=== PATIENT | female | born 1990 | race Caucasian/White ===

== ENCOUNTER 2016-12-09 15:43 | Emergency (ER) | payer OTHER ==
--- NOTE | ~2016-12-09 | CR72 ---
[facility] A Service of [facility] & [facility] RADIOLOGY TEXT RESULTS PATIENT: MARVEL SOLITARIO LOCATION: [facility] : [birth year] UNIT #: [id number] AGE: [address]: Gene Lozano MD SEX: F ORDER DR: [id number] [facility] [address] [place], [place] [address] [id number] E MR#: [id number] Acc #: [id number] NAME: MARVEL SOLITARIO : 1990 SEX: F STUDY DATE/TIME: 12/09/2016 15:15 UNIT: [facility] ROOM: STUDY DESCRIPTION: CR Chest Single View Portable Attending Physician: Gene Lozano M.D. Ordering Physician: Ed Keo August M.D. Primary Care Physician: [facility] MEDICAL IMAGING REPORT This report is preliminary unless electronic signature is present EXAM AP portable chest, 12/09/2016 COMPARISON 12/07/2015 HISTORY SUPPLIED Heroin overdose, shortness of breath today. FINDINGS An AP view is obtained at low volumes. The heart size appears normal and the lungs are clear. CONCLUSION Low volume chest, negative. Dictated by... Keanu Vaca M.D. THIS IS AN ELECTRONICALLY VERIFIED REPORT Keanu Vaca M.D. at 12/10/2016 8:01 AM AMBER/aislinn TD: 12/09/2016 21:24 JOB #: [id number] MEDICAL IMAGING REPORT COPY
[~2016-12-09 15:43] MED LIST: ATARAX PO; AUGMENTIN875 MG PO; BACTROBAN22 GM TOP; CIPRO PO; CIPRODEX OTIC7.5 ML OT; DAKIN'S MODIF1000 ML TOP; FLAGYL PO; HYDROCODON-ACE1 EAC7 PO; IBUPROFEN800 MG PO; MACROBID100 MG PO; NO MEDICATIONS; ORTHO TRI-7 DAYS X PO; PREDNISONE10 MG/DOSE PO; PYRIDIUM100 MG PO; TRIAMCINOLONE A15 G3 EXT
== END 2016-12-09 17:27 | disposition home or self-care (01) ==
LOC: CED 15:43
DX: T40.1X1A Poisoning by heroin, accidental (unintentional), initial encounter (principal); K74.60 Unspecified cirrhosis of liver; F17.210 Nicotine dependence, cigarettes, uncomplicated; Z98.890 Other specified postprocedural states; Z88.1 Allergy status to other antibiotic agents
CPT/HCPCS: 71010; 99282; 99283

== ENCOUNTER 2016-12-10 15:53 | Emergency (ER) | payer OTHER ==
--- NOTE | ~2016-12-10 | EKG ---
PATIENT: MARVEL SOLITARIO UNIT #: [id number] Ventricular Rate: 87 BPM Atrial Rate: 87 BPM P-R Interval: 104 ms QRS Duration: 92 ms Q-T Interval: 362 ms QTC Calculation(Bezet): 435 ms P Terril: 36 degrees Calculated R Terril: 85 degrees Calculated T Terril: 48 degrees Diagnosis Line: Sinus rhythm with short AR Diagnosis Line: Otherwise normal ECG Diagnosis Line: When compared with ECG of 07-DEC-2015 22:59, Diagnosis Line: (unconfirmed) Diagnosis Line: No significant change was found Diagnosis Line: Confirmed by TWIN PERRY MD ([id number]) on Diagnosis Line: 12/11/2016 11:24:35 AM INTERPRETING MD: VICKY DIAZ
[2016-12-10 15:37] LABS: BASOPHIL% 0.5 % (0-2.5); EOSINOPHIL# 0.2 X10e3 (0-0.7); EOSINOPHIL% 3.4 % (0.0-7.0); HEMOGLOBIN 14.1 gm/dL (12.0-16.0); LYMPHOCYTE# 2.4 X10e3 (1.0-3.5); LYMPHOCYTE% 33.5 % (17.0-45.0); MEAN CELL VOLUME 82.5 FL (83-96); MEAN CORPUSCULAR HEMOGLOBIN 27.8 PG (28-34); MEAN CORPUSCULAR HGB CONC 33.7 g/dL (30-36); MEAN PLATELET VOLUME 7.7 FL (6.5-11.5); MONOCYTE# 0.6 X10e3 (0-1.0); NEUTROPHIL# 3.8 X10e3 (1.5-7.1); NEUTROPHIL% 54.6 % (40-75); PLATELET COUNT 184 X10e3 (140-420); RED BLOOD COUNT 5.09 X10e (3.90-5.30); RED CELL DISTRIBUTION WIDTH 13.5 % (11.0-15.5)
[2016-12-10 15:38] LABS: DIFF IND NO
[2016-12-10 15:52] LABS: ALBUMIN SERUM 4.4 g/dL (3.5-5.0); ALKALINE PHOSPHATASE 54 U/L (32-92); ALT (SGPT) 71 U/L (10-40); AST (SGOT) 48 U/L (10-42); BILIRUBIN, DIRECT 0.1 mg/dL (0.0-0.2); BILIRUBIN,INDIRECT 0.6 mg/dL (0.0-0.9); BILIRUBIN,TOTAL 0.7 mg/dL (0.2-2.0); BLOOD UREA NITROGEN 9 mg/dL (9-23); BUN/CREATININE RATIO 11.25; CALCIUM SERUM 9.1 mg/dL (8.4-10.2); CARBON DIOXIDE 25 mmol/L (22-31); CHLORIDE 102 mmol/L (100-111); CREATININE SERUM 0.8 mg/dL (0.6-1.4); GLOM FILT RATE Estimated ABOVE60 mL/min (>60); GLUCOSE FASTING 83 mg/dL (70-110); POTASSIUM 3.2 mmol/L (3.5-5.1); PROTEIN TOTAL SERUM 7.7 g/dL (6.0-8.3); SODIUM 136 mmol/L (135-145)
[2016-12-10 15:53] LABS: ALCOHOL BLOOD <5 mg/dL (0)
[2016-12-10 15:54] LABS: URINE SOURCE CLEAN CATCH
[2016-12-10 15:59] LABS: URINE APPEARANCE CLEAR; URINE BLOOD NEG (NEG); URINE COLOR YELLOW; URINE GLUCOSE NORM (NORM); URINE KETONE NEG (NEG); URINE LEUKOCYTE ESTERASE NEG (NEG); URINE NITRATE NEG (NEG); URINE PROTEIN 1+ (NEG); URINE SPECIFIC GRAVITY 1.025 (1.003-1.035); URINE UROBILINOGEN NORM (NORM)
[2016-12-10 16:05] LABS: AMPHETAMINE POS (NEG); BARBITURATES NEG (NEG); BENZODIAZEPINES POS (NEG); COCAINE NEG (NEG); MARIJUANA POS (NEG); OPIATES POS (NEG); TRICYCLIC ANTIDEPRESSANTS NEG (NEG); U METHADONE NEG (NEG)
[2016-12-10 16:12] LABS: URINE BILIRUBIN NEG (NEG)
[2016-12-10 16:16] LABS: CULTURE INDICATED? NO; URBCS1 AUWI 0-2 /[HPF] (0-2); UWBCS1 AUWI 0-2 (0-5)
[2016-12-10 16:17] LABS: U HYALINE CASTS AUWI 0-2 /[LPF]; URINE CRYSTALS CALCIUM OXALATE /[HPF]; URINE GRANULAR CAST 0-2 /[HPF]; URINE MUCUS PRESENT; URINE SPERM PRESENT; URINE SQUAMOUS EPITHELIAL CELL FEW /[HPF]; URINE TRANSITIONAL EPI CELLS FEW /[HPF]
== END 2016-12-10 19:23 | disposition home or self-care (01) ==
LOC: CED 15:53
PROVIDERS: Emergency Medicine
DX: F11.129 Opioid abuse with intoxication, unspecified (principal); F15.129 Other stimulant abuse with intoxication, unspecified; F19.129 Other psychoactive substance abuse with intoxication, unspecified; F17.200 Nicotine dependence, unspecified, uncomplicated; Z88.1 Allergy status to other antibiotic agents
CPT/HCPCS: 36415; 80048; 80076; 80307; 81003; 82947; 84703; 85025; 93005; 96361; 96374; 99285; G0480; J2310

== ENCOUNTER 2017-01-18 14:36 | Inpatient (IN) | payer OTHER ==
--- NOTE | ~2017-01-18 | HP ---
Unit #: [id number] #: [id number] Patient: MARVEL SOLITARIO [id number] [address] [place], [place] [address] [id number] I MR#: [id number] NAME: MARVEL SOLITARIO ROOM: 217 Age: 26 Sex: F Admission Date: 01/18/2017 : 1990 Attending Physician: Nicola Ugalde M.D. HISTORY AND PHYSICAL REASON FOR ADMISSION Right antecubital fossa abscess. HISTORY OF PRESENT ILLNESS This is a 26-year-old patient, very pleasant, who states that she used IV heroin for many years. She quit several months ago and states that she had a relapse over the past several weeks to where she began using on a daily basis. She began noticing swelling which was present over her right arm, as well as the right antecubital fossa area became painful. She stated that she has had similar issues in the past. I did go through her chart review, and I do see a previous admission in April 2013 for the same. PAST MEDICAL HISTORY 1. IV drug abuse daily. 2. Prior history of antecubital fossa abscess. 3. Cirrhosis written in the chart; however, patient denies. PAST SURGICAL HISTORY Incision and drainage. HOME MEDICATIONS None. ALLERGIES No known drug allergies. FAMILY HISTORY Reviewed and noncontributory or non-pertinent. SOCIAL HISTORY Positive tobacco use, positive social alcohol use, positive illicit drug use with ongoing IV heroin use. REVIEW OF SYSTEMS Please see History of Present Illness. Twelve points otherwise negative except for those positive and noted in the History of Present Illness. PHYSICAL EXAMINATION VITAL SIGNS: Temperature 98.5, pulse 104, respirations 16, and blood pressure 125/74. GENERAL APPEARANCE: A pleasant, 26-year-old female lying comfortably in no acute distress. HEAD: Atraumatic and normocephalic. Unit #: [id number] #: [id number] Patient: MARVEL SOLITARIO EARS: Tympanic membranes do not reveal any erythema or injection. NECK: Supple. CARDIOVASCULAR: S1 and S2 without murmur. RESPIRATORY: Clear. GASTROINTESTINAL/ABDOMEN: Nontender and nondistended. LOWER EXTREMITIES: No evidence of any lower extremity edema or calf tenderness. Right upper extremity reveals fluctuant abscess formation in the antecubital fossa area. Tenderness and warmth, as well as associated erythema are noted around the right elbow, as well as the AC area. DIAGNOSTIC STUDIES INITIAL LABORATORY: CBC shows hemoglobin level of 12.3 and white count of 9.7. BMP shows potassium of 3.2. Urine toxicology screen is positive for amphetamines and marijuana, as well as opiates. INITIAL ADMISSION DIAGNOSES 1. Right antecubital fossa abscess. 2. Ongoing IV heroin use. 3. Questionable prior history of cirrhosis. 4. Noncompliant/poor insight into overall disease process. PLAN Admission to med/surg floor. [facility] consultation for evaluation. Vancomycin and Zosyn overnight. Obtain blood cultures. Further hospital course to follow. Dictated by Bethany Burt/benny TD: 01/19/2017 20:20 JOB #: [id number] HISTORY AND PHYSICAL Page 1 of 1 X Nicola Ugalde MD X HISTORY AND PHYSICAL
--- NOTE | ~2017-01-18 | OR ---
Unit #: [id number] #: [id number] Patient: MARVEL SOLITARIO [id number] [address] [address] [id number] I MR#: [id number] NAME: MARVEL SOLITARIO ROOM: 217 Date of Procedure: 01/19/2017 Admission Date: 01/18/2017 Surgeon: Dev Brush M.D. : 1990 Attending Physician: Nicola Ugalde M.D. Referring Physician: Primary Care Physician No Primary Care Physician: Primary Care Physician No OPERATIVE REPORT PREOPERATIVE DIAGNOSIS Right antecubital abscess. POSTOPERATIVE DIAGNOSIS Right antecubital abscess. PROCEDURE PERFORMED Incision and drainage of right antecubital abscess. ANESTHESIA General endotracheal. COMPLICATIONS None. ESTIMATED BLOOD LOSS Minimal. DESCRIPTION OF PROCEDURE After the patient was prepped and draped in the usual fashion, right antecubital space was examined just proximal to the elbow crease on the ventral side. There was an area of fluctuance. There was surrounding induration and erythema circumferentially about 6 to 7 cm. The fluctuant area was incised. An incision was made about a centimeter and half long. Pus was expressed. This was sent for culture. The cavity was irrigated and suctioned free. There was no significant necrosis. There was decent granulation tissue within the cavity itself. The cavity was packed with 0.25-inch iodoform gauze. Dressing was applied. The patient was taken to the recovery room in good condition. Dictated by... Bethany Ortiz/devendra TD: 01/20/2017 00:15 JOB #: [id number] Unit #: [id number] #: [id number] Patient: MARVEL SOLITARIO OPERATIVE REPORT Page 1 of 1 X Dev Brush PROCEDURE OPERATIVE NOTE
--- NOTE | ~2017-01-18 | DS ---
Unit #: [id number] #: [id number] Patient: MARVEL SOLITARIO [id number] [address] [place], [place] [address] [id number] I MR#: [id number] NAME: MARVEL SOLITARIO ROOM: 217 Age: 26 Sex: F Admission Date: 01/18/2017 : 1990 Discharge Date: 01/21/2017 Attending Physician: Nicola Ugalde M.D. DISCHARGE SUMMARY DISCHARGE DIAGNOSES 1. Right antecubital fossa abscess, status post incision and drainage by General Surgery. 2. Methicillin-resistant Staphylococcus aureus wound sensitive to tetracycline. Was discharged on doxycycline. 3. Right shoulder pain. 4. Intravenous heroin use. PROCEDURE Incision and drainage of right antecubital abscess by Dr. Dev Brush on January 19, 2017. TECHNICAL IMPLEMENTATION LEAD [facility]. DIAGNOSTIC STUDIES LABORATORY: Patient's last labs were on January 19. BMP with glucose of 109, BUN 8, creatinine 0.7, sodium 134, potassium 4.7, chloride 104, CO2 of 22, and calcium 8.9. CBC with WBC of 11.2, RBC 4.38, hemoglobin 12.1, hematocrit 36.4, MCV 83, MCH 27.6, MCHC 33.2, RDW 13.1, platelets 265,000, and MPV 7.15. Microbiology: Patient's blood culture had no growth. She had two samples of the wound from her arm during operative incision and drainage. One of the cultures has MRSA sensitive to tetracycline. IMAGING: No imaging done during this hospitalization. HOSPITAL COURSE The patient is a 26-year-old female with a past medical history of IV heroin use for many years who presented to the emergency department due to swelling in her right arm, as well as the right antecubital fossa. It had become severely painful and therefore was seen in the emergency department for further evaluation. She was admitted. A urine drug screen was positive for amphetamine, marijuana, and opioids. She was seen in consultation with [facility] who performed an incision and drainage of the right antecubital fossa abscess. She had transiently been on antibiotics with Zosyn and vancomycin. Blood culture had no growth. Wound culture did have MRSA which is sensitive to tetracycline. A prescription for doxycycline was prescribed with surgeon's recommendation. Patient told me that she had pain in her right shoulder. I had ordered an MRI of the shoulder to be done, but she became very angry that it took so long for this procedure to be complete. She was seen throwing francesco at Unit #: [id number] #: [id number] Patient: MARVEL SOLITARIO the nurses. Therefore, if she had full range of motion in that shoulder and blood culture had been negative, we thought that it was best that she be discharged home. She does have orders to follow up with her primary care physician within one to two weeks. She is to have dressing changes done twice daily, and she is to follow up with the wound clinic at [facility] in one week where Dr. Streeter will be following her. At this time, patient is discharged in stable condition to home. DISCHARGE INSTRUCTIONS 1. Followup: As stated above, follow up with primary care physician within one to two weeks and follow up at [facility] in one week followed by Dr. Stereter. 2. Dressing changes at home twice daily. 3. Activity: Nonrestricted. 4. Diet: Nonrestricted. DISCHARGE MEDICATIONS 1. Hydrocodone and acetaminophen 5/325 at 1 tablet every 6 hours as needed for moderate to severe pain. Prescription for 30 was given. 2. Doxycycline 100 mg orally twice daily for 7 days. PROGNOSIS Patient's prognosis is poor given her poor insight into her actual ongoing medical problems. Dictated by... Rocky Borges PA-C for Bethany Burt TD: 01/21/2017 21:55 JOB #: [id number] DISCHARGE SUMMARY Page 1 of 1 X X DISCHARGE SUMMARY
[2017-01-18 14:53] LABS: BASOPHIL# 0.1 X10e3 (0-0.3); BASOPHIL% 0.7 % (0-2.5); EOSINOPHIL# 0.2 X10e3 (0-0.7); EOSINOPHIL% 2.2 % (0.0-7.0); HEMATOCRIT 36.3 % (35.0-45.0); HEMOGLOBIN 12.3 gm/dL (12.0-16.0); LYMPHOCYTE# 1.6 X10e3 (1.0-3.5); LYMPHOCYTE% 16.6 % (17.0-45.0); MEAN CELL VOLUME 81.7 FL (83-96); MEAN CORPUSCULAR HEMOGLOBIN 27.7 PG (28-34); MEAN CORPUSCULAR HGB CONC 33.8 g/dL (30-36); MEAN PLATELET VOLUME 7.3 FL (6.5-11.5); MONOCYTE# 0.5 X10e3 (0-1.0); MONOCYTE% 5.3 % (3.0-12.0); NEUTROPHIL# 7.3 X10e3 (1.5-7.1); NEUTROPHIL% 75.2 % (40-75); PLATELET COUNT 254 X10e3 (140-420); RED BLOOD COUNT 4.44 X10e (3.90-5.30); WHITE BLOOD COUNT 9.7 X10e3 (4.0-10.5)
[2017-01-18 15:04] LABS: DIFF IND NO
[2017-01-18 15:33] LABS: BUN/CREATININE RATIO 22.5; CALCIUM SERUM 8.7 mg/dL (8.4-10.2); CREATININE SERUM 0.4 mg/dL (0.6-1.4); GLOM FILT RATE Estimated 144.8 mL/min (>60); POTASSIUM 3.2 mmol/L (3.5-5.1)
[2017-01-18 16:54] LABS: AMPHETAMINE POS (NEG); BARBITURATES NEG (NEG); BENZODIAZEPINES NEG (NEG); COCAINE NEG (NEG); MARIJUANA POS (NEG); OPIATES POS (NEG); TRICYCLIC ANTIDEPRESSANTS NEG (NEG); U METHADONE NEG (NEG)
[2017-01-19] MEDS ORDERED: NO MEDICATIONS (06:11)
[2017-01-19 11:34] LABS: BASOPHIL# 0.1 X10e3 (0-0.3); BASOPHIL% 0.7 % (0-2.5); EOSINOPHIL# 0.1 X10e3 (0-0.7); EOSINOPHIL% 0.7 % (0.0-7.0); HEMATOCRIT 36.4 % (35.0-45.0); HEMOGLOBIN 12.1 gm/dL (12.0-16.0); LYMPHOCYTE# 1.7 X10e3 (1.0-3.5); LYMPHOCYTE% 15.3 % (17.0-45.0); MEAN CORPUSCULAR HEMOGLOBIN 27.6 PG (28-34); MEAN CORPUSCULAR HGB CONC 33.2 g/dL (30-36); MEAN PLATELET VOLUME 7.5 FL (6.5-11.5); MONOCYTE# 0.3 X10e3 (0-1.0); MONOCYTE% 2.8 % (3.0-12.0); NEUTROPHIL% 80.5 % (40-75); PLATELET COUNT 265 X10e3 (140-420); RED BLOOD COUNT 4.38 X10e (3.90-5.30); RED CELL DISTRIBUTION WIDTH 13.1 % (11.0-15.5); WHITE BLOOD COUNT 11.2 X10e3 (4.0-10.5)
[2017-01-19 11:35] LABS: DIFF IND NO
[2017-01-19 12:08] LABS: BUN/CREATININE RATIO 11.42; CALCIUM SERUM 8.9 mg/dL (8.4-10.2); CREATININE SERUM 0.7 mg/dL (0.6-1.4); GLOM FILT RATE Estimated 120.4 mL/min (>60)
[2017-01-19 12:09] LABS: POTASSIUM 4.7 mmol/L (3.5-5.1)
[2017-01-21] MEDS ORDERED: LORTAB 5-325 M1 EACH PO (14:09)
[2017-01-21] MEDS ORDERED: DOXYCYCLINE HY100 M3 PO (14:09)
== END 2017-01-21 16:16 | disposition home or self-care (01) | DRG 603 ==
LOC: CED 14:36 → CEDOF 18:05 → C2A 01-19 05:58
PROVIDERS: Emergency Medicine; Surgery
PROC: 0X980ZZ Drainage of Right Upper Arm, Open Approach (ICD-10-PCS; principal; 2017-01-19 07:30)
DX: L02.413 Cutaneous abscess of right upper limb (principal); F11.10 Opioid abuse, uncomplicated; M25.511 Pain in right shoulder; B95.62 Methicillin resistant Staphylococcus aureus infection as the cause of diseases classified elsewhere; Z91.19 Patient's noncompliance with other medical treatment and regimen
CPT/HCPCS: 36415; 80048; 80307; 84703; 85025; 87040; 87070; 87075; 87077; 87186; 87205; 96365; 99285; J1100; J1170; J1885; J2060; J2250; J2270; J2543; J2765; J3370

== ENCOUNTER 2017-03-02 18:24 | Emergency (ER) | payer OTHER ==
--- NOTE | ~2017-03-02 | CR127 ---
[facility] A Service of [facility] & [facility] RADIOLOGY TEXT RESULTS PATIENT: MARVEL SOLITARIO LOCATION: [facility] : [birth year] UNIT #: [id number] AGE: [address]: RALPH FAULKNER SEX: F ORDER DR: [id number] [place] [address] [id number] E MR#: [id number] Acc #: [id number] NAME: MARVEL SOLITARIO : 1990 SEX: F STUDY DATE/TIME: 03/02/2017 UNIT: SED ROOM: STUDY DESCRIPTION: CR Foot Complete Min 3 View Rt Attending Physician: Ralph Faulkner Ordering Physician: Ralph Faulkner Primary Care Physician: Primary Care Physician No MEDICAL IMAGING REPORT This report is preliminary unless electronic signature is present. EXAM Right foot 3 views 03/02/2017 19:14 hours HISTORY 26-year-old woman complaining of redness, swelling of the anterior foot for 3 days. History of drug use. COMPARISON None FINDINGS AP, lateral and oblique views demonstrate dorsal soft tissue swelling with no fracture, dislocation, foreign body or soft tissue gas. IMPRESSION Dorsal soft tissue swelling diffusely. No fracture, dislocation, foreign body or soft tissue gas is seen. Dictated by... Sherrell Choudhury M.D. THIS IS AN ELECTRONICALLY VERIFIED REPORT Sherrell Choudhury M.D. at 03/03/2017 8:46 AM M/pablito TD: 03/03/2017 07:04 JOB #: [id number] MEDICAL IMAGING REPORT Page 1 of 1
[~2017-03-02 18:24] MED LIST changes: +DOXYCYCLINE HY100 M3 PO; +LORTAB 5-325 M1 EACH PO
[2017-03-02 19:14] LABS: BASOPHIL% 0.5 % (0-2.5); EOSINOPHIL# 0.1 X10e3 (0-0.7); EOSINOPHIL% 1.6 % (0.0-7.0); HEMATOCRIT 38.6 % (35.0-45.0); HEMOGLOBIN 13.2 gm/dL (12.0-16.0); LYMPHOCYTE# 1.7 X10e3 (1.0-3.5); MEAN CELL VOLUME 80.8 FL (83-96); MEAN CORPUSCULAR HEMOGLOBIN 27.5 PG (28-34); MEAN PLATELET VOLUME 7.7 FL (6.5-11.5); MONOCYTE# 0.5 X10e3 (0-1.0); MONOCYTE% 5.6 % (3.0-12.0); NEUTROPHIL% 74.3 % (40-75); PLATELET COUNT 259 X10e3 (140-420); RED BLOOD COUNT 4.78 X10e (3.90-5.30); RED CELL DISTRIBUTION WIDTH 13.1 % (11.0-15.5); WHITE BLOOD COUNT 9.5 X10e3 (4.0-10.5)
[2017-03-02 19:16] LABS: DIFF IND NO
[2017-03-02 19:27] LABS: BUN/CREATININE RATIO 12.85; CALCIUM SERUM 8.9 mg/dL (8.4-10.2); CREATININE SERUM 0.7 mg/dL (0.6-1.4); GLOM FILT RATE Estimated 120.4 mL/min (>60)
== END 2017-03-02 20:26 | disposition home or self-care (01) ==
LOC: SED 18:24
PROVIDERS: Physician Assistant
DX: L03.115 Cellulitis of right lower limb (principal); F17.200 Nicotine dependence, unspecified, uncomplicated; K75.9 Inflammatory liver disease, unspecified; F11.20 Opioid dependence, uncomplicated
CPT/HCPCS: 36415; 73630; 80048; 84703; 85025; 96365; 99284; J0696

== ENCOUNTER 2017-03-07 07:33 | Inpatient (IN) | payer OTHER ==
--- NOTE | ~2017-03-07 | OR ---
Unit #: [id number] #: [id number] Patient: MARVEL SOLITARIO [id number] [address] [place], [place] [address] [id number] I MR#: [id number] NAME: MARVEL SOLITARIO ROOM: [facility] Date of Procedure: 03/10/2017 Admission Date: 03/07/2017 Surgeon: Sandra Tavares M.D. : 1990 Attending Physician: Nicola Ugalde M.D. OPERATIVE REPORT PREOPERATIVE DIAGNOSIS Right dorsal foot abscess. POSTOPERATIVE DIAGNOSIS Right dorsal foot abscess. PROCEDURE PERFORMED Right foot dorsal abscess incision and drainage (). ASSISTANTS MD Prema and LULU Noble. ANESTHESIA General. INDICATIONS FOR SURGERY The patient is a 26-year-old female with a right dorsal foot abscess from injecting IV heroin. She has had persistent worsening pain and swelling on the dorsal foot. She now has a fluctuant mass in the dorsal aspect of the foot. DESCRIPTION OF PROCEDURE The patient was taken to the operating room and placed in supine position and general anesthetic was induced. The right foot was identified as the correct operative location during the time-out procedure. The IV antibiotic protocol was followed. The right foot was then prepped and draped in the usual sterile fashion. The leg was exsanguinated with gravity and the tourniquet was inflated to 250 mmHg. A dorsal longitudinal incision was made over the dorsal midfoot fluctuant mass measuring 4 cm. Pus was immediately obtained. This was cultured for aerobic and anaerobic bacteria. All loculations were released. All tissue was resected. The wound was then irrigated with 1 L of normal saline. The wound was then packed open with Betadine-soaked 1-inch roll gauze. Dressing, sponges, Kerlix, and an Rm wrap were then applied. The patient was placed in a postoperative shoe. She was then awakened in the operating room and transported to the recovery room in stable condition. ESTIMATED BLOOD LOSS Minimal. COMPLICATIONS None. Unit #: [id number] #: [id number] Patient: MARVEL SOLITARIO SPECIMENS Cultures. TOURNIQUET TIME 10 minutes. Dictated by.Trista Tavares M.D. RTH/modl TD: 03/11/2017 04:43 JOB #: [id number] OPERATIVE REPORT Page 1 of 1 X Mabel Tavares MD PROCEDURE OPERATIVE NOTE
--- NOTE | ~2017-03-07 | MR59 ---
[facility] A Service of [facility] & [facility] RADIOLOGY TEXT RESULTS PATIENT: MARVEL SOLITARIO LOCATION: [facility] : [birth year] UNIT #: [id number] AGE: [address]: Nicola Ugalde MD SEX: F ORDER DR: [id number] [place] [id number] [facility]. [place], [place] [address] [id number] I MR#: [id number] Acc #: [id number] NAME: MARVEL SOLITARIO : 1990 SEX: F STUDY DATE/TIME: 03/10/2017 19:41 UNIT: [facility] ROOM: [facility] STUDY DESCRIPTION: MR Foot WWo Contrast Rt Attending Physician: Nicola Ugalde M.D. Ordering Physician: Sandar Tavares M.D. Primary Care Physician: No Primary Care Physician MRI CENTER REPORT This report is preliminary unless electronic signature is present. EXAM MRI of the right foot with and without contrast HISTORY 26-year-old female; right foot pain, dorsal foot abscess. Swelling and pain beginning February 28; infection at injection site. Patient IV drug user. Recent foot debridement today. The history states injected heroin into right foot. COMPARISON Right foot films 03/02/2017 TECHNIQUE Multiplanar multiecho imaging was performed of the right mid and forefoot to include axial T1-weighted images following IV gadolinium. FINDINGS Examination demonstrates a large wound over the dorsolateral aspect of the foot overlying the proximal aspects of the fourth and fifth metatarsals. There is surgical packing within the wound. The wound measures about 2 x 2 cm in transverse dimensions and about 4.4 cm in AP dimension. There is diffuse soft tissue swelling over the dorsum of foot which enhances postcontrast compatible with active cellulitis. No evidence of residual abscess or fluid collection. No definite deep compartment involvement. No findings to suggest septic arthritis or osteomyelitis. IMPRESSION 1. Large wound over the dorsolateral aspect of the foot containing surgical packing, as detailed above. 2. Extensive soft tissue swelling and edema over the dorsum of the foot with enhancement postcontrast, compatible with active cellulitis. 3. No evidence of residual abscess, deep compartment infection, septic arthritis, or osteomyelitis. ST[facility] A Service of [facility] & [facility] RADIOLOGY TEXT RESULTS PATIENT: MARVEL SOLITARIO LOCATION: [place] [address] : [birth year] UNIT #: [id number] AGE: [address]: Nicola Ugalde MD SEX: F ORDER DR: Dictated by... Tarik Watson M.D. THIS IS AN ELECTRONICALLY VERIFIED REPORT Tarik Watson M.D. at 03/11/2017 5:03 PM Von TD: 03/11/2017 11:06 JOB #: [id number] MRI CENTER REPORT Page 1 of 1 COPY
--- NOTE | ~2017-03-07 | HP ---
Unit #: [id number] #: [id number] Patient: MARVEL SOLITARIO [id number] [address] [address] [id number] I MR#: [id number] NAME: MARVEL SOLITARIO ROOM: 318 Age: 26 Sex: F Admission Date: 03/07/2017 : 1990 Attending Physician: Mery Sainz M.D. Primary Care Physician: No Primary Care Physician HISTORY AND PHYSICAL CHIEF COMPLAINT Right foot pain. HISTORY OF PRESENT ILLNESS The patient is a 26-year-old female with a past medical history of IV drug use, MRSA, who presented to the emergency department for evaluation of the above at [facility]. The patient states that she injected drugs into her right foot on February 28, 2017. She noticed that it was sore a few hours later. The next day, it was swollen, red and painful. She was seen at [facility] on March 02, 2017. A right foot x-ray was done and showed soft tissue swelling diffusely. She was given clindamycin and discharged home. She states that she has been taking the clindamycin as prescribed but the symptoms have persisted. She presented to [facility] for evaluation again. In the emergency department, initial temperature and pulse were 98.1 and 118 respectively. She was given 1 L of normal saline as well as 1 g of Rocephin. She was transferred to [facility] for admission. Of note, the patient's urine tox screen was positive for amphetamine and opiates. Urine beta hCG was negative. PAST MEDICAL HISTORY Admission to [facility] January 18 though the 2016, for right antecubital fossa abscess. She underwent incision and drainage during that admission. Wound culture from January 19, 2017, grew 1+ MRSA. SURGICAL HISTORY Incision and drainage. SOCIAL HISTORY The patient is currently living with her brother. She is an IV drug user. She reports IV heroin and methamphetamine use. She smokes a half pack of cigarettes daily. She denies alcohol use. FAMILY HISTORY Notable for her mother having rheumatoid arthritis. Her father is . He had lymphoma. ALLERGIES No known allergies. Unit #: [id number] #: [id number] Patient: MARVEL SOLITARIO HOME MEDICATIONS Clindamycin. REVIEW OF SYSTEMS A complete review of systems is negative except as indicated in the HPI. The patient states that she is interested in rehab. She states that she has a bed at [facility] on Friday. DIAGNOSTIC STUDIES IMAGING: Right foot x-ray (March 02) showed soft tissue swelling. LABORATORY: Complete blood count is essentially normal. Beta hCG is negative. Urine tox screen positive for amphetamine and opiates. Basic metabolic panel notable for potassium of 3.4. PHYSICAL EXAMINATION VITAL SIGNS: Temperature is 98.1, pulse 118, respirations 16, blood pressure 125/85. GENERAL: The patient is a female who is awake and alert, in no acute distress. HEENT: The head is atraumatic. Mucous membranes are moist. NECK: Supple. Trachea is midline. CARDIOVASCULAR: Tachycardic in the 110s. LUNGS: Clear to auscultation bilaterally with no increased work of breathing. ABDOMEN: Soft, nontender with bowel sounds present in all four quadrants. EXTREMITIES: There is no pedal edema involving the left lower extremity. The right foot is erythematous, warm, edematous and tender to palpation involving the dorsal aspect. PSYCH: Mood and affect are normal. The patient is cooperative. SKIN: Demonstrates the previously described abnormalities. NEUROLOGIC: The patient is awake and alert. She is moving all extremities. ASSESSMENT The patient is a 26-year-old female with: 1. Cellulitis involving the right foot: She received vancomycin in the emergency department. 2. Intravenous drug use with last use being on February 28: The patient is interested in rehab and has a bed at [facility] on Friday. 3. Hypokalemia. 4. History of methicillin resistant Staph aureus. 5. Tobacco abuse. PLAN 1. Admit to intermediate level. 2. Regular diet. 3. Normal saline at 125 mL/hour. 4. Blood cultures x2. 5. Vancomycin IV and Zosyn IV for cellulitis pending further workup. 6. Check hepatitis panel and HIV. 7. industrial maintenance manager/social work consult regarding IV drug use. 8. Check magnesium level. 9. Potassium and magnesium protocol. Unit #: [id number] #: [id number] Patient: MARVEL SOLITARIO 10. P.r.n. Toradol. 11. P.r.n. Tylenol. 12. P.r.n. Zofran. 13. Repeat labs in the morning. 14. Monitor heart rate. 15. Additional workup and consultants based on above. Dictated by Bethany Anderson/yaritza TD: 03/07/2017 13:01 JOB #: [id number] HISTORY AND PHYSICAL Page 1 of 1 X Mery Sainz MD X HISTORY AND PHYSICAL
--- NOTE | ~2017-03-07 | CO ---
Unit #: [id number] #: [id number] Patient: MARVEL SOLITARIO [id number] [address] [address] [id number] I MR#: [id number] NAME: MARVEL SOLITARIO ROOM: 225 Age: 26 Sex: F Admission Date: 03/07/2017 : 1990 Attending Physician: Nicola Ugalde M.D. Consultation Date: 03/10/2017 CONSULTATION REPORT CHIEF COMPLAINT Right foot pain. HISTORY OF PRESENT ILLNESS This is a 26-year-old white female with a past medical history of IV drug use and MRSA presented to the emergency room at [facility] on 03/07/2017 for worsening swelling and right foot pain. The patient reports on 02/28/2017 she injected heroin into her right foot and the following day she went to [facility] and was treated with oral clindamycin and discharged home. Since that time, her symptoms have persisted and she re-presented to [facility] Emergency Room. In the ER, she was found positive for amphetamine and opiates. Her urine hCG was negative. The patient reports great difficulty focusing her right toe and foot and states that her right foot is significantly tender to palpation. She reports she has been on vancomycin since admission. She denies any fevers and states her swelling laterally has significantly improved. PAST MEDICAL HISTORY Right antecubital fossa abscess I and D, positive for MRSA. PAST SURGICAL HISTORY Incision and drainage. SOCIAL HISTORY Lives with brother, IV drug abuse-IV heroin and methamphetamine, a half a pack of cigarettes smoked daily, and no alcohol use. FAMILY HISTORY Mother had rheumatoid arthritis. Father is with history of lymphoma. ALLERGIES No known drug allergies. HOME MEDICATIONS Clindamycin. REVIEW OF SYSTEMS She reported symptoms in HPI. PHYSICAL EXAMINATION GENERAL: No acute distress, alert and oriented x3. VITAL SIGNS: Temperature of 98.0, pulse of 83, respirations of 17, O2 Unit #: [id number] #: [id number] Patient: MARVEL SOLITARIO 97%, blood pressure 92/52. HEART: Regular rate and rhythm. LUNGS: Nonlabored breathing. MUSCULOSKELETAL: Right lower extremity: Palpable posterior tibialis pulse, nonpalpable dorsalis pedis pulse secondary to swelling, moderate dorsal foot swelling with erythema extending to the ankle joint, significant tenderness to palpation over the second and third toe interspace, inability to flex the second and third toes, normal range of motion of ankle. NEURO: Cranial nerves intact. PSYCH: Mood was in normal limits, affect appropriate. DIAGNOSTIC STUDIES LABORATORY RESULTS: BMP within normal limits. Hemoglobin of 10.6, hematocrit 32.1. Vancomycin level of 14.7. Blood cultures negative. The hCG negative. Urine tox, positive for amphetamines and opiates. IMAGING STUDIES: X-ray on 03/02/2017 revealed dorsal soft tissues swelling diffusely, no fracture, no dislocation, no foreign body or soft tissue gas. ASSESSMENT AND PLAN A 26-year-old white female, 10 day status post heroin injection into her right dorsal midfoot. She has been on vancomycin since admission and x-rays revealed dorsal soft tissue swelling. She has been unresponsive to oral antibiotic treatment. We will cancel the CT and order an MRI of her right foot without contrast as soon as possible. The patient is to remain n.p.o. , planned surgery at noon today for right foot incision and drainage for dorsal foot abscess. Dictated by... Lynn Olmos PA-C for Bethany Stiles/devendra TD: 03/11/2017 03:13 JOB #: [id number] CONSULTATION REPORT Page 1 of 1 X X CONSULTATION REPORT
--- NOTE | ~2017-03-07 | DS ---
Unit #: [id number] #: [id number] Patient: MARVEL SOLITARIO [id number] [facility]. [place], [place] [address] [id number] I MR#: [id number] NAME: MARVEL SOLITARIO ROOM: 225 Age: 26 Sex: F Admission Date: 03/07/2017 : 1990 Discharge Date: 03/13/2017 Attending Physician: Nicola Ugalde M.D. Primary Care Physician: No Primary Care Physician DISCHARGE SUMMARY REASON FOR ADMISSION Right foot pain. HISTORY OF PRESENT ILLNESS/HOSPITAL COURSE The patient is a very pleasant 26-year-old female with prior history of IV drug abuse ongoing, who attempted to inject some heroin in between her toes. She subsequently began developing right foot pain, swelling, as well as, discomfort. She was seen at [facility] on March 02, 2017. Right foot x-ray was done. It showed soft tissue swelling diffusely. She was given clindamycin and discharged home. She stated that she was taking her clindamycin but her symptoms persisted. She presented to [facility] ER for re-evaluation and therefore at that point in time, decision was made for transfer to [facility] for further evaluation. Her initial urine tox screen was positive for amphetamines and opiates, none of which she was prescribed. She does have a prior history of ongoing IV drug abuse and recent hospital admission to [facility] from January 18 to January 21 for right antecubital fossa abscess. She underwent incision and drainage at that time and wound cultures from that visit showed MRSA. Initially, she was placed on med/surg floor. She was started on IV antibiotics. Her right foot did not show any improvement. Therefore, we consulted ID services as well as orthopedics services. Ultimately, patient underwent incision and drainage by Dr. Tavares and associates. This procedure was performed on March 10, 2017. Postoperatively, she otherwise did well. She also underwent a MRI foot with and without contrast on March 10, 2017. It did show an aforementioned active cellulitis but there was no evidence of acute osteomyelitis which was noted. Ultimately, wound cultures did show MSSA. She was on IV antibiotics while here by ID services. Today, orthopedic services have stated that patient is stable for discharge. Wound dressing and/or packing has been instructed to the patient's present at bedside. We are awaiting ID confirmation in regard to antibiotic regimen at time of discharge. Once clarification in regard to her antibiotics are made, patient will be discharged home. At time of discharge, her hemoglobin is currently 10.4. Her BMP is unremarkable. Magnesium level is 1.7. Hepatitis screen is positive for hepatitis C and HIV screen as mentioned above is negative. Blood cultures of note have been negative through this hospital course. Unit #: [id number] #: [id number] Patient: MARVEL SOLITARIO FINAL DISCHARGE DIAGNOSES 1. Right foot cellulitis/abscess, status post incision and drainage with resultant methicillin-sensitive Staphylococcus aureus wound culture. 2. Ongoing IV drug abuse with poor insight into disease process. 3. Anemia: Baseline hemoglobin around 10. DISCHARGE MEDICATIONS 1. Lexapro 10 mg p.o. daily. 2. Tramadol 50 mg p.o. q.6 p.r.n. #30, prescription given. 3. Antibiotics to be determined by ID services at time of discharge. DISCHARGE CONDITION Stable. DISCHARGE DISPOSITION Home. PROGNOSIS Long-term prognosis poor as this patient has very little insight into the dangers and risk of ongoing IV drug abuse even though she has been counseled on numerous occasions and once again, she was counseled this hospital admission as well. Dictated by... Bethany Burt/angella TD: 03/14/2017 08:57 JOB #: [id number] DISCHARGE SUMMARY Page 1 of 1 X Nicola Ugalde MD X DISCHARGE SUMMARY
--- NOTE | ~2017-03-07 | CO ---
Unit #: [id number] #: [id number] Patient: MARVEL SOLITARIO [id number] [address] [place], [place] [address] [id number] I MR#: [id number] NAME: MARVEL SOLITARIO ROOM: 225 Age: 26 Sex: F Admission Date: 03/07/2017 : 1990 Attending Physician: Nicola Ugalde M.D. Primary Care Physician: Primary Care Physician No Consultation Date: 03/10/2017 CONSULTATION REPORT HISTORY OF PRESENT ILLNESS Ms. Solitario is a 26-year-old, white female with a 1-week history of right foot swelling and cellulitis, no response to oral antibiotics or IV antibiotics. She says it has gotten worse. She has some involuntary footdrop. She is noted to have palpable pulses; however, the cellulitis over the dorsum foot is very spongy and mushy. It is difficult to tell whether this is fluctuance or not. Instead of pointing, it appears to be more diffuse. ALLERGIES None. SOCIAL HISTORY She is an IV drug user daily. She has had a history of questionable cirrhosis of the liver. She is 1-pack per day smoker. No alcohol, but does use drugs. MEDICATIONS She is on clindamycin at home. Otherwise no other medications. PHYSICAL EXAMINATION Cooperative, alert, white female, oriented x3. The only positive finding is the problem with the right foot as described above. PLAN I think the patient may need extensive debridement of her forefoot, tendons may be involved. I am going to get an orthopedic consult before this happens, I will keep the patient n.p.o., in case they will need to take the patient to the operating room. Dictated by... Bethany Tom/devendra TD: 03/10/2017 07:30 JOB #: [id number] Unit #: [id number] #: [id number] Patient: MARVEL SOLITARIO CONSULTATION REPORT Page 1 of 1 X Abiodun Streeter MD CONSULTATION REPORT
--- NOTE | ~2017-03-07 | CO ---
Unit #: [id number] #: [id number] Patient: MARVEL SOLITARIO [id number] [address] [address] [id number] I MR#: [id number] NAME: MARVEL SOLITARIO ROOM: 225 Age: 26 Sex: F Admission Date: 03/07/2017 : 1990 Attending Physician: Nicola Ugalde M.D. Primary Care Physician: No Primary Care Physician Consultation Date: 03/12/2017 CONSULTATION REPORT REASON FOR CONSULTATION Antibiotic management in a patient with a right foot wound. HISTORY OF PRESENT ILLNESS This is a 26-year-old female with a history of IV drug abuse, who presented after injecting heroin into her right foot. In 12/2016 the patient had an arm wound that grew MRSA due to IV drug abuse. While she has been here she reports that on 02/28/2017 she injected the heroin into her foot. She was treated with oral clindamycin and was sent home. However, she did not have any resolution of her symptoms. The patient was admitted and had an MRI which did not show any osteomyelitis, but significant cellulitis. The patient has been taken to the operating room for incision and drainage of her abscess on her right foot wound. The patient is currently on vancomycin and Zosyn and infectious disease was asked to evaluate for further management. In discussion with the patient, she is somewhat lethargic in discussion, but she denied any fever, chills, shortness of breath, chest pain, nausea, vomiting or diarrhea, but she does report some continued pain in her foot. PAST MEDICAL HISTORY 1. Right antecubital fossa abscess with incision and drainage, positive for MRSA. 2. Otherwise no significant history. SOCIAL HISTORY The patient lives with family. She has a history of IV drug abuse and methamphetamine. Positive tobacco, but no alcohol abuse. ALLERGIES No known drug allergies. CURRENT MEDICATIONS 1. Vancomycin. 2. Zosyn. For further medications please refer to the patient's MAR. The patient does have a prior use of clindamycin without resolution of symptoms. REVIEW OF SYSTEMS Negative except for as previously mentioned in the history of present illness. PHYSICAL EXAMINATION GENERAL: This is a no apparent distress, slightly lethargic female who is Unit #: [id number] #: [id number] Patient: MARVEL SOLITARIO able to awaken and answer questions. VITALS: Temperature 98.8, pulse 63, blood pressure 112/75, respiratory rate 16. HEENT: Pupils are equal. NECK: Supple. LUNGS: Clear to auscultation bilaterally with no wheezes or rhonchi noted. HEART: S1 and S2. Regular rate and rhythm. ABDOMEN: Positive bowel sounds. Nontender. EXTREMITIES: Right foot wound that is clean with what appears to be resolving erythema due to the marked outline that is on her foot. She does have a clean beefy red wound with some exposed tendon. SKIN: She has multiple areas of what appears to be psoriasis on her arms and scalp. DIAGNOSTIC STUDIES IMAGING: MRI of her foot post debridement showed large wound over the dorsolateral aspect of her foot with extensive soft tissue swelling and edema, consistent with active cellulitis without evidence of residual abscess, compartment infection, septic arthritis or osteomyelitis. LABORATORY: BUN 5, creatinine 0.7, sodium 140, potassium 4.1, chloride 112, CO2 23, bilirubin 0.2, AST 21, ALT 15. CRP was 0.9 when last checked. Hemoglobin 10, hematocrit 30, platelets 232, white blood cell count 5. Sedimentation rate on 03/09/2017 was 64. Microbiology, blood cultures are currently negative to date. Culture from 03/10/2017 shows MSSA. ASSESSMENT/PLAN This is a 26-year-old female with a history of IV drug abuse. Last injected on 02/28/2017 into her right foot with development of abscess and cellulitis. The patient is status post incision and drainage. MRI post procedure is not consistent with compartment syndrome, osteomyelitis or residual abscess. At this time blood cultures are negative and foot cultures show methicillin staph aureus. At this time will discontinue vancomycin and will continue Zosyn for now. May be able to change to high-dose oral Keflex at discharge. However, will need to discuss with Dr. Jimenez as there is evidence of exposed tendon. Will continue local wound care per surgery. Thank you for allowing us to participate in the care of this patient. Further recommendations to follow pending the patient's clinical course. Dictated by... Rebekah Means/michelle TD: 03/12/2017 10:18 JOB #: [id number] Unit #: [id number] #: [id number] Patient: MARVEL SOLITARIO CONSULTATION REPORT Page 1 of 1 X X CONSULTATION REPORT
[2017-03-07] MEDS ORDERED: CLEOCIN (07:45)
[2017-03-07 08:32] LABS: BASOPHIL# 0.1 X10e3 (0-0.3); DIFF IND NO; EOSINOPHIL# 0.2 X10e3 (0-0.7); HEMATOCRIT 37.4 % (35.0-45.0); HEMOGLOBIN 12.7 gm/dL (12.0-16.0); LYMPHOCYTE# 1.8 X10e3 (1.0-3.5); LYMPHOCYTE% 21.9 % (17.0-45.0); MEAN CELL VOLUME 80.6 FL (83-96); MEAN CORPUSCULAR HEMOGLOBIN 27.3 PG (28-34); MEAN CORPUSCULAR HGB CONC 33.8 g/dL (30-36); MEAN PLATELET VOLUME 7.5 FL (6.5-11.5); MONOCYTE# 0.7 X10e3 (0-1.0); MONOCYTE% 8.3 % (3.0-12.0); NEUTROPHIL# 5.5 X10e3 (1.5-7.1); NEUTROPHIL% 65.8 % (40-75); PLATELET COUNT 277 X10e3 (140-420); RED BLOOD COUNT 4.65 X10e (3.90-5.30); WHITE BLOOD COUNT 8.3 X10e3 (4.0-10.5)
[2017-03-07 08:42] LABS: AMPHETAMINE POS (NEG); BARBITURATES NEG (NEG); BENZODIAZEPINES NEG (NEG); COCAINE NEG (NEG); MARIJUANA NEG (NEG); OPIATES POS (NEG); TRICYCLIC ANTIDEPRESSANTS NEG (NEG); U METHADONE NEG (NEG)
[2017-03-07 08:46] LABS: BUN/CREATININE RATIO 11.66; CREATININE SERUM 0.6 mg/dL (0.6-1.4); GLOM FILT RATE Estimated 126.7 mL/min (>60); POTASSIUM 3.4 mmol/L (3.5-5.1)
[2017-03-08 06:24] LABS: HEMATOCRIT 35.3 % (35.0-45.0); HEMOGLOBIN 11.8 gm/dL (12.0-16.0); MEAN CELL VOLUME 79.7 FL (83-96); MEAN CORPUSCULAR HEMOGLOBIN 26.6 PG (28-34); MEAN CORPUSCULAR HGB CONC 33.4 g/dL (30-36); MEAN PLATELET VOLUME 7.4 FL (6.5-11.5); RED BLOOD COUNT 4.42 X10e (3.90-5.30); RED CELL DISTRIBUTION WIDTH 13.1 % (11.0-15.5)
[2017-03-08 06:55] LABS: ALBUMIN SERUM 3.1 g/dL (3.5-5.0); BILIRUBIN,TOTAL 0.2 mg/dL (0.2-2.0); CALCIUM SERUM 8.4 mg/dL (8.4-10.2); CREATININE SERUM 0.5 mg/dL (0.6-1.4); GLOM FILT RATE Estimated 134.5 mL/min (>60); MAGNESIUM 1.9 mg/dL (1.6-3.0); POTASSIUM 4.1 mmol/L (3.5-5.1)
[2017-03-08 07:03] LABS: CREATININE SERUM 0.6 mg/dL (0.6-1.4); GLOM FILT RATE Estimated 126.7 mL/min (>60)
[2017-03-09 05:33] LABS: HEMATOCRIT 35.6 % (35.0-45.0); HEMOGLOBIN 11.7 gm/dL (12.0-16.0); MEAN CORPUSCULAR HEMOGLOBIN 26.6 PG (28-34); MEAN CORPUSCULAR HGB CONC 32.8 g/dL (30-36); RED BLOOD COUNT 4.39 X10e (3.90-5.30); RED CELL DISTRIBUTION WIDTH 13.2 % (11.0-15.5); WHITE BLOOD COUNT 8.5 X10e3 (4.0-10.5)
[2017-03-09 06:23] LABS: BUN/CREATININE RATIO 12.85; CALCIUM SERUM 8.6 mg/dL (8.4-10.2); CREATININE SERUM 0.7 mg/dL (0.6-1.4); GLOM FILT RATE Estimated 120.4 mL/min (>60); MAGNESIUM 2.1 mg/dL (1.6-3.0); POTASSIUM 3.9 mmol/L (3.5-5.1)
[2017-03-10 06:43] LABS: HEMATOCRIT 32.1 % (35.0-45.0); HEMOGLOBIN 10.6 gm/dL (12.0-16.0); MEAN CELL VOLUME 80.6 FL (83-96); MEAN CORPUSCULAR HEMOGLOBIN 26.6 PG (28-34); MEAN PLATELET VOLUME 7.6 FL (6.5-11.5); RED BLOOD COUNT 3.98 X10e (3.90-5.30); RED CELL DISTRIBUTION WIDTH 12.9 % (11.0-15.5); WHITE BLOOD COUNT 7.3 X10e3 (4.0-10.5)
[2017-03-10 07:02] LABS: BUN/CREATININE RATIO 8.57; CALCIUM SERUM 8.3 mg/dL (8.4-10.2); CREATININE SERUM 0.7 mg/dL (0.6-1.4); GLOM FILT RATE Estimated 120.4 mL/min (>60); MAGNESIUM 1.8 mg/dL (1.6-3.0); POTASSIUM 3.9 mmol/L (3.5-5.1)
[2017-03-11 05:14] LABS: HEMATOCRIT 30.8 % (35.0-45.0); HEMOGLOBIN 10.2 gm/dL (12.0-16.0); MEAN CELL VOLUME 80.8 FL (83-96); MEAN CORPUSCULAR HEMOGLOBIN 26.8 PG (28-34); MEAN CORPUSCULAR HGB CONC 33.1 g/dL (30-36); MEAN PLATELET VOLUME 7.5 FL (6.5-11.5); RED BLOOD COUNT 3.81 X10e (3.90-5.30); RED CELL DISTRIBUTION WIDTH 13.2 % (11.0-15.5); WHITE BLOOD COUNT 5.9 X10e3 (4.0-10.5)
[2017-03-12 06:59] LABS: HEMATOCRIT 30.3 % (35.0-45.0); MEAN CELL VOLUME 80.5 FL (83-96); MEAN CORPUSCULAR HEMOGLOBIN 26.7 PG (28-34); MEAN CORPUSCULAR HGB CONC 33.2 g/dL (30-36); RED BLOOD COUNT 3.76 X10e (3.90-5.30); RED CELL DISTRIBUTION WIDTH 12.8 % (11.0-15.5); WHITE BLOOD COUNT 5.2 X10e3 (4.0-10.5)
[2017-03-12 07:47] LABS: HA AB IGM (HEPPAN) Nonreactive (()); HB CORE AB IGM (HEPPAN) Nonreactive (Nonreactive); HB S AG (HEPPAN) Nonreactive (Nonreactive); HEP C AB (HEPPAN) Reactive (Nonreactive)
[2017-03-12 07:57] LABS: BUN/CREATININE RATIO 7.14; CALCIUM SERUM 8.2 mg/dL (8.4-10.2); CREATININE SERUM 0.7 mg/dL (0.6-1.4); GLOM FILT RATE Estimated 120.4 mL/min (>60); POTASSIUM 4.1 mmol/L (3.5-5.1)
[2017-03-13 06:34] LABS: HEMATOCRIT 30.4 % (35.0-45.0); HEMOGLOBIN 10.2 gm/dL (12.0-16.0); MEAN CELL VOLUME 80.6 FL (83-96); MEAN CORPUSCULAR HEMOGLOBIN 26.9 PG (28-34); MEAN CORPUSCULAR HGB CONC 33.4 g/dL (30-36); MEAN PLATELET VOLUME 7.2 FL (6.5-11.5); RED BLOOD COUNT 3.77 X10e (3.90-5.30); RED CELL DISTRIBUTION WIDTH 12.9 % (11.0-15.5)
[2017-03-13 07:05] LABS: BUN/CREATININE RATIO 11.66; CALCIUM SERUM 8.3 mg/dL (8.4-10.2); CREATININE SERUM 0.6 mg/dL (0.6-1.4); GLOM FILT RATE Estimated 126.7 mL/min (>60); POTASSIUM 3.9 mmol/L (3.5-5.1)
[2017-03-13] MEDS ORDERED: ULTRAM PO (11:15)
[2017-03-13] MEDS ORDERED: LEXAPRO PO (11:15)
[2017-03-13] MEDS ORDERED: KEFLEX500 M1 PO (12:36)
[2017-03-13] MEDS ORDERED: TYL325 PO (12:52)
== END 2017-03-13 14:00 | disposition home or self-care (01) | DRG 571 ==
LOC: SED 07:33 → CEDOF 09:11 → SED 09:11 → C3A PCU 11:21 → CEDOF 11:21 → C2A 12:50 → C3A PCU 12:50 → CEDOF 12:50 → C2A 03-08 18:12
PROVIDERS: Emergency Medicine; Family Medicine; Internal Medicine; Orthopaedic Surgery
PROC: 0JBQ0ZZ Excision of Right Foot Subcutaneous Tissue and Fascia, Open Approach (ICD-10-PCS; principal; 2017-03-10 12:30)
DX: L03.115 Cellulitis of right lower limb (principal); L02.611 Cutaneous abscess of right foot; F11.10 Opioid abuse, uncomplicated; B95.61 Methicillin susceptible Staphylococcus aureus infection as the cause of diseases classified elsewhere; F15.10 Other stimulant abuse, uncomplicated; D64.9 Anemia, unspecified; E87.6 Hypokalemia; F17.210 Nicotine dependence, cigarettes, uncomplicated; Z86.14 Personal history of Methicillin resistant Staphylococcus aureus infection; Z80.7 Family history of other malignant neoplasms of lymphoid, hematopoietic and related tissues
CPT/HCPCS: 36415; 73720; 80048; 80053; 80074; 80202; 80307; 82565; 83735; 84703; 85025; 85027; 85652; 86140; 87040; 87070; 87075; 87077; 87186; 87205; 87522; 87806; 94010; 94760; 96361; 96365; 99284; A9577; J1170; J1885; J2060; J2250; J2405; J2543; J3010; J3370; J3475